=== PATIENT | male | born 1970 | race Caucasian/White ===

== ENCOUNTER 2017-04-19 02:22 | Emergency (ER) | payer SELFPAY ==
[~2017-04-19] VITALS: Ht 182.9 cm; Wt 81.6 kg
[2017-04-19 02:28] VITALS: BP 144/80
[2017-04-19] MEDS ORDERED: CEPH-264 PO (02:55)
[2017-04-19] MEDS ORDERED: SULF1TAB24 PO (02:55)
[2017-04-19] MEDS ORDERED: IBUP-1060 PO (02:55)
--- NOTE | 2017-04-19 02:56 | PHYS DOC ---
Past Medical History Past Medical History: Diabetes-Type I Past Surgical History: Other Additional Past Surgical Histo: spleen repair Alcohol Use: Rarely Drug Use: None Adult General Chief Complaint Chief Complaint: FINGER INJURY HPI HPI Patient is a 46 year old male who presents with right index fingertip infection. 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 Patient states tonight he removed what he believes the last of the splinter however as a night progressed the pain got worse. Patient denies any other injuries. Patient denies any fevers. Patient is diabetic. Patient is right-handed. Patient is no other complaints. Review of Systems Review of Systems GEN: Denies fevers, chills, sweats HEENT: Denies blurred vision, sore throat CV: Denies chest pain RESP: Denies shortness of air, cough GI: Denies n/v/d NEURO: Denies confusion, dizziness MSK: Right index finger pain Allergies Allergies Allergies Coded Allergies Type Severity Reaction Last Updated Verified No Known Drug Allergies 04/19/17 No Physical Exam Physical Exam GEN.: No apparent distress. Alert and oriented. HEENT: Head is normocephalic, atraumatic NECK: Supple. LUNGS: CTAB. HEART: RRR, S1, S2 present. Peripheral pulses intact ABDOMEN: Soft, nontender. Positive bowel sounds. EXTREMITIES: Without any cyanosis. Tip of the right index finger is tender to palpation with erythema and swelling, or refill less than 2 seconds, abrasion to the pad of the index finger secondary to recent removal of the splinter NEUROLOGIC: Normal speech, normal tone PSYCHIATRIC: Normal affect, normal mood. SKIN: No ulcerations Current Patient Data Vital Signs Vital Signs Date Time Temp Pulse Resp B/P (MAP) Pulse Ox O2 Delivery O2 Flow Rate FiO2 04/19/17 02:28 98.8 75 16 96 Room Air 98.8 EKG EKG [] Radiology/Procedures Radiology/Procedures [] Course & Med Decision Making Course & Med Decision Making Pertinent Labs and Imaging studies reviewed. (See chart for details) MDM: After reviewing the chart, CC/HPI/PMH, physical exam, the patient has a fingertip infection secondary to have any splinter in the finger. I do not believe there is no abscess and needs be drained at this time. Patient has no signs or symptoms of flexor tenosynovitis The patient is diabetic therefore be placed on antibiotics. Believe the patient is stable for discharge as showing no systemic signs of sepsis. Recommended patient follow with PCP in one to 2 days. Additional verbal discharge instructions were provided to the patient and that if symptoms get worse or any new symptoms arise that are worrisome to the patient he is to return to the emergency room immediately [] Dragon Disclaimer Dragon Disclaimer This electronic medical record was generated, in whole or in part, using a voice recognition dictation system. Departure Departure Impression: Primary Impression: Finger infection Disposition: HOME, SELF-CARE Condition: IMPROVED Referrals: NO PCP (PCP) Patient Instructions: Fingertip Infections Additional Instructions: Please follow up with her family doctor next one to 2 days Scripts Sulfamethoxazole/Trimethoprim (BACTRIM DS TABLET) 1 Each Tablet 1 TAB PO BID, #20 TAB Prov: TAMIKO CRISTINA DO 04/19/17 Cephalexin (KEFLEX) 500 Mg Capsule 1 CAP PO TID, #30 CAP Prov: TAMIKO CRISTINA DO 04/19/17 Ibuprofen (IBUPROFEN) 800 Mg Tablet 800 MG PO PRN Q6HRS Y for INFLAMMATION for 10 Days, #40 TAB Prov: TAMIKO CRISTINA DO 04/19/17 TAMIKO CRISTINA DO Apr 19, 2017 02:56
== END 2017-04-19 03:20 | disposition home or self-care (01) ==
LOC: ER 02:22
DX: L08.9 Local infection of the skin and subcutaneous tissue, unspecified (principal); E10.9 Type 1 diabetes mellitus without complications; Z79.4 Long term (current) use of insulin
CPT/HCPCS: 99283

== ENCOUNTER 2017-04-26 14:59 | Emergency (ER) | payer SELFPAY ==
[~2017-04-26] VITALS: Ht 182.9 cm; Wt 81.6 kg
[~2017-04-26 14:59] MED LIST: CEPH-264 PO; IBUP-1060 PO; SULF1TAB24 PO
[2017-04-26 15:18] VITALS: BP 135/94
--- NOTE | 2017-04-26 15:40 | PHYS DOC ---
Past Medical History Past Medical History: Diabetes-Type I Past Surgical History: Other Additional Past Surgical Histo: spleen repair Alcohol Use: Rarely Drug Use: None Adult General Chief Complaint Chief Complaint: FINGER INJURY [facility] HPI Patient is a 46 year old male presents to the emergency department concerns regarding an injury to the right index finger. The injury is 10 days old. Patient reports he was in the emergency department 7 days ago at which time he is placed on cephalexin and Bactrim. He states he's been soaking the finger in peroxide and does not seem to be getting better. He has no increase in pain. He occasionally has purulent discharge from the wound. Review of Systems Review of Systems Constitutional: Denies fever or chills [] Eyes: Denies change in visual acuity, redness, or eye pain [] HENT: Denies nasal congestion or sore throat [] Respiratory: Denies cough or shortness of breath [] Cardiovascular: No additional information not addressed in HPI [] GI: Denies abdominal pain, nausea, vomiting, bloody stools or diarrhea [] : Denies dysuria or hematuria [] Musculoskeletal: Right index finger injury Integument: Denies rash or skin lesions [] Neurologic: Denies headache, focal weakness or sensory changes [] Endocrine: Denies polyuria or polydipsia [] Allergies Allergies Allergies Coded Allergies Type Severity Reaction Last Updated Verified No Known Drug Allergies 04/19/17 No Physical Exam Physical Exam Constitutional: Well developed, well nourished, no acute distress, non-toxic appearance. [] Skin: Warm, dry, no erythema, no rash. [] Extremities: Right index finger, palmar aspect, distal to the DIP, area of callus. The original injury is been E faecalis. And appears to have a small amount of purulent discharge. There is no erythema to the finger. He has no pain with range of motion. Neurovascular intact distally. Current Patient Data Vital Signs Vital Signs Date Time Temp Pulse Resp B/P (MAP) Pulse Ox O2 Delivery O2 Flow Rate FiO2 04/26/17 15:18 98.5 73 18 98 Room Air 98.5 EKG EKG [] Radiology/Procedures Radiology/Procedures Right index finger, area cleansed with Betadine, callus debrided. The underlying tissue is well granulated. There is no erythema, no purulence. She was provided with wound care information, advised to continue current antibiotics, follow-up primary care in 7-10 days. [] Course & Med Decision Making Course & Med Decision Making Pertinent Labs and Imaging studies reviewed. (See chart for details) [] Dragon Disclaimer Dragon Disclaimer This electronic medical record was generated, in whole or in part, using a voice recognition dictation system. Departure Departure Impression: Primary Impression: Encounter for wound re-check Disposition: HOME, SELF-CARE Condition: STABLE Referrals: NO PCP (PCP) Patient Instructions: Wound Care, [id number] Additional Instructions: Continue antibiotics as previously directed. The wound clean and dry. Cover the wound if you will be working at your job in getting wound dirty. JOSE ARMANDO [employer] PATHOLOGIST Apr 26, 2017 15:40
== END 2017-04-26 15:48 | disposition home or self-care (01) ==
LOC: ER 14:59
DX: L84 Corns and callosities (principal); E10.9 Type 1 diabetes mellitus without complications
CPT/HCPCS: 99284

== ENCOUNTER 2019-02-13 14:31 | Emergency (ER) | payer MEDICARE, SELFPAY ==
[~2019-02-13] VITALS: Ht 182.9 cm; Wt 74.8 kg
[2019-02-13] MEDS ORDERED: IV NORMAL SALINE 1000ML BAG 1,000 ML IV ONE (15:30)
[2019-02-13 15:35] LABS: BASO % 1 % (0-3); EOS # 0.1 x10^3/uL (0.0-0.7); EOS % 1 % (0-3); HEMATOCRIT 44.3 % (39.0-53.0); HEMOGLOBIN 15.1 g/dL (13.0-17.5); LYMPH # 2.3 x10^3/uL (1.0-4.8); LYMPH % 30 % (24-48); MEAN CORPUSCULAR HEMOGLOBIN 30 pg (25-35); MEAN CORPUSCULAR HGB CONC 34 g/dL (31-37); MEAN CORPUSCULAR VOLUME 89 fL (79-100); MONO # 0.6 x10^3/uL (0.0-1.1); MONO % 8 % (0-9); NEUT # 4.6 x10^3uL (1.8-7.7); NEUT % 61 % (31-73); PLATELET COUNT 213 x10^3/uL (140-400); RED BLOOD COUNT 4.97 x10^6/uL (4.30-5.70); RED CELL DISTRIBUTION WIDTH 13.3 % (11.5-14.5); WHITE BLOOD COUNT 7.6 x10^3/uL (4.0-11.0)
[2019-02-13 15:44] LABS: GFR 80.1; POTASSIUM 4.6 mmol/L (3.5-5.1)
[2019-02-13 15:50] LABS: ALBUMIN 3.9 g/dL (3.4-5.0); ALBUMIN/GLOBULIN RATIO 1.1 (1.0-1.7); TOTAL BILIRUBIN 0.5 mg/dL (0.2-1.0); TOTAL PROTEIN 7.5 g/dL (6.4-8.2)
[2019-02-13 15:57] LABS: BILIRUBIN,URINE NEGATIVE (NEG); CLARITY,URINE CLEAR; COLOR,URINE YELLOW; NITRITE,URINE NEGATIVE (NEG); PROTEIN,URINE NEGATIVE (NEG-TRACE); UROBILINOGEN,URINE 0.2 mg/dL (0.2 mg/dL)
[2019-02-13 16:00] VITALS: BP 116/71
--- NOTE | 2019-02-13 16:07 | PHYS DOC ---
Past Medical History Past Medical History: Diabetes-Type I Past Surgical History: Other Additional Past Surgical Histo: spleen repair Alcohol Use: Rarely Drug Use: None Adult General Chief Complaint Chief Complaint: ABSCESS HPI HPI 48-year-old male presents to ER for complaints of ongoing pilonidal cyst which he has had since May. Patient reports he has been seen by his primary care physician however his A1c has been elevated and so they were reluctant to do any type of I&D or wound care until A1c improved. Patient reports 2 months ago he had his A1c rechecked and it was down to 8.7 which it had been over 10 on prior check. She reports the area continues to grow in size denies any urinary or change in bowel patterns. Patient denies fever, nausea or vomiting, or diarrhea. Patient states his blood sugars have been fluctuating. During exam patient is quite anxious and flight of ideas when discussing ongoing symptoms. With questioning he had to be redirected multiple times as he would not answer questions and again change subjective and discuss other ongoing issues. Pt denies any illicit drug use reports history of anxiety states he did take Xanax earlier which as prescribed. Review of Systems Review of Systems Constitutional: Denies fever or chills [] Eyes: Denies change in visual acuity, redness, or eye pain [] HENT: Denies nasal congestion or sore throat [] Respiratory: Denies cough or shortness of breath [] Cardiovascular: No additional information not addressed in HPI [] GI: Denies abdominal pain, nausea, vomiting, bloody stools or diarrhea. Pt reports abscess on coccyx- denies rectal pain or pain w/BMs : Denies dysuria or hematuria [] Musculoskeletal: Denies joint pain. Reports pain/swelling at abscess site coccyx area Integument: Reports abscess Neurologic: Denies headache, focal weakness or sensory changes [] Endocrine: Denies polyuria or polydipsia [] Psych: Reports anxiety- denying SI All other systems were reviewed and found to be within normal limits, except as documented in this note. Current Medications Current Medications Current Medications Medications (Trade) Dose Ordered Sig/Kim Start Time Stop Time Status Last Admin Dose Admin Lorazepam (Ativan Inj) 1 mg 1X ONCE 02/13/19 16:15 02/13/19 16:16 DC 02/13/19 16:15 1 MG Nicotine (Nicoderm Cq 21mg) 1 patch DAILY 02/13/19 18:00 02/13/19 18:22 DC Sodium Chloride 1,000 ml @ 1,000 mls/hr 1X ONCE 02/13/19 15:30 02/13/19 16:29 DC 02/13/19 15:28 1,000 MLS/HR Allergies Allergies Allergies Coded Allergies Type Severity Reaction Last Updated Verified No Known Drug Allergies 04/19/17 No Physical Exam Physical Exam Constitutional: Well developed, well nourished, no acute distress, non-toxic appearance. [] HENT: Normocephalic, atraumatic, bilateral external ears normal, oropharynx moist, no oral exudates, nose normal. [] Eyes: PERRLA, EOMI, conjunctiva normal, no discharge. [] Neck: Normal range of motion, no tenderness, supple, no stridor. [] Cardiovascular:Heart rate regular rhythm, no murmur [] Lungs & Thorax: Bilateral breath sounds clear to auscultation [] Abdomen: Bowel sounds normal, soft, no tenderness, no masses, no pulsatile masses. [] Skin: Warm, dry, no erythema, no rash. [] Back: No tenderness, no CVA tenderness. [] Extremities: No tenderness, no cyanosis, no clubbing, ROM intact, no edema. [] Neurologic: Alert and oriented X 3, normal motor function, normal sensory funct ion, no focal deficits noted. [] Psychologic: Affect normal, judgement normal, mood normal. [] Current Patient Data Vital Signs Vital Signs Date Time Temp Pulse Resp B/P (MAP) Pulse Ox O2 Delivery O2 Flow Rate FiO2 02/13/19 16:00 74 116/71 (86) 98 Room Air 02/13/19 14:54 98.5 20 98.5 Lab Values Laboratory Tests Test 02/13/19 14:54 02/13/19 15:20 02/13/19 15:45 02/13/19 16:38 Glucose (Fingerstick) 458 mg/dL (70-99) H 304 mg/dL (70-99) H White Blood Count 7.6 x10^3/uL (4.0-11.0) Red Blood Count 4.97 x10^6/uL (4.30-5.70) Hemoglobin 15.1 g/dL (13.0-17.5) Hematocrit 44.3 % (39.0-53.0) Mean Corpuscular Volume 89 fL (79-100) Mean Corpuscular Hemoglobin 30 pg (25-35) Mean Corpuscular Hemoglobin Concent 34 g/dL (31-37) Red Cell Distribution Width 13.3 % (11.5-14.5) Platelet Count 213 x10^3/uL (140-400) Neutrophils (%) (Auto) 61 % (31-73) Lymphocytes (%) (Auto) 30 % (24-48) Monocytes (%) (Auto) 8 % (0-9) Eosinophils (%) (Auto) 1 % (0-3) Basophils (%) (Auto) 1 % (0-3) Neutrophils # (Auto) 4.6 x10^3uL (1.8-7.7) Lymphocytes # (Auto) 2.3 x10^3/uL (1.0-4.8) Monocytes # (Auto) 0.6 x10^3/uL (0.0-1.1) Eosinophils # (Auto) 0.1 x10^3/uL (0.0-0.7) Basophils # (Auto) 0.0 x10^3/uL (0.0-0.2) Sodium Level 135 mmol/L (136-145) L Potassium Level 4.6 mmol/L (3.5-5.1) Chloride Level 98 mmol/L (98-107) Carbon Dioxide Level 28 mmol/L (21-32) Anion Gap 9 (6-14) Blood Urea Nitrogen 19 mg/dL (8-26) Creatinine 1.0 mg/dL (0.7-1.3) Estimated GFR (Cockcroft-Gault) 80.1 BUN/Creatinine Ratio 19 (6-20) Glucose Level 417 mg/dL (70-99) H Calcium Level 9.0 mg/dL (8.5-10.1) Total Bilirubin 0.5 mg/dL (0.2-1.0) Aspartate Amino Transferase (AST) 18 U/L (15-37) Alanine Aminotransferase (ALT) 27 U/L (16-63) Alkaline Phosphatase 105 U/L (46-116) Total Protein 7.5 g/dL (6.4-8.2) Albumin 3.9 g/dL (3.4-5.0) Albumin/Globulin Ratio 1.1 (1.0-1.7) Ethyl Alcohol Level < 10 mg/dL (0-10) Acetone Level Neg (NEG) Urine Collection Type Unknown Urine Color Yellow Urine Clarity Clear Urine pH 6.0 Urine Specific [place] >=1.030 Urine Protein Negative mg/dL (NEG-TRACE) Urine Glucose (UA) >=1000 mg/dL (NEG) Urine Ketones (Stick) Negative mg/dL (NEG) Urine Blood Negative (NEG) Urine Nitrite Negative (NEG) Urine Bilirubin Negative (NEG) Urine Urobilinogen Dipstick 0.2 mg/dL (0.2 mg/dL) Urine Leukocyte Esterase Negative (NEG) Urine RBC Occ /HPF (0-2) Urine WBC 0 /HPF (0-4) Urine Bacteria 0 /HPF (0-FEW) Urine Opiates Screen Neg (NEG) Urine Methadone Screen Neg (NEG) Urine Barbiturates Neg (NEG) Urine Phencyclidine Screen Neg (NEG) Urine Amphetamine/Methamphetamine Neg (NEG) Urine Benzodiazepines Screen Neg (NEG) Urine Cocaine Screen Neg (NEG) Urine Cannabinoids Screen Pos (NEG) Urine Ethyl Alcohol Neg (NEG) Laboratory Tests 02/13/19 15:20 Laboratory Tests 02/13/19 15:20 EKG EKG [] Radiology/Procedures Radiology/Procedures [] Course & Med Decision Making Course & Med Decision Making Pertinent Labs reviewed. (See chart for details) Pt's initial Accu-Chek was 458-discussed with elevated blood sugar discussed obtaining labs for further eval. to r/o DKA or other acute process. 1645: Indepth conversation had with patient regarding elevated blood sugar and ongoing pilonidal cyst. Test results were discussed with acetone negative UA negative for ketones and anion gap was normal limits as well. Patient's recheck on blood sugar 304 bedside. Again during conversation patient was anxious and restless multiple times needing redirection on conversation as he would repeat over and over the same things and continued to focus on his A1c and that being the cause he hadn't had surgery in the past. Discussion had with patient regarding pilonidal cyst and elevated blood sugar and need for general surgery to care for wound and close monitoring due to his diabetes. Patient did not appear to comprehend what was being said to him. He just repeatedly would talk about his A1c. Discussed test results with pt- multiple times he interrupted so uncertain if he was listening as he was so focused on talking about his A!c and his belief his cyst hadn't been cared for d/t to past results. Discharge instructions were discussed as labs were unremarkable- no DKA with neg. acetone/NL anion gap. IV flds had been given as well as dose of Ativan which had briefly improved pt's anxiety. At no time was he combative/uncontrollable with actions. He denied SI/hallucinations/drug use/alcohol use. He was just wanting to speak his feelings with little regard to what this provider was saying. Pt requested admission following discussion as he wants to have surgeon see him- will speak with hospitalist and discuss pt's case/requests for admit. 1950: Dr. Clement, hospitalist in ER. Discussed pt's case and pt's reluctancy on being discharged home as he wanted to be MARYANN by General Surgeon even after indepth attempts to have conversation with pt that he could be seen outpt and cared for. Dr. Clement went to bedside and had same issue with pt. She reports she discussed pt having outpt care vs admission and that she would provide him with Rx for Lantus for hs w/his elevated BS and pt to f/u with his diabetic doctor for re-eval of his BS. Pt continued to interrupt Dr. Clement during discussion- he again appeared uninterested in what the provider was saying and wanted to voice his thoughts. Dr. Clement said to discharge pt home as he is stable and not wanting to listen to provider's comments. Will provide pt with abscess info as he had sm. abscess to lt side of pilonidal cyst-area was small and no large fluctuation on palpation. Patient advised on need to call his doctor as soon as possible to schedule appointment for reevaluation as well as general surgeon for additional care for the pilonidal cyst. Education provided on signs and symptoms to return to ER. Discharge instructions were discussed. Again while attempting to discuss discharge instructions patient interrupted multiple times so uncertain if he was listening to this provider's education. He was in no visible distress steady unassisted gait and remaining nontoxic in appearance. Patient had stated he had Xanax prescribed for his anxiety and thro ughout ER visit had denied SI. Patient was provided with prescription for Lantus 20 units daily at hs by Dr. Clement with his d/c paperwork. Dragon Disclaimer Dragon Disclaimer This electronic medical record was generated, in whole or in part, using a voice recognition dictation system. Departure Departure Impression: Primary Impression: Cyst, pilonidal, with abscess Disposition: HOME, SELF-CARE Condition: STABLE Referrals: NO PCP (PCP) ANETA GOINS MD Patient Instructions: Pilonidal Cyst Additional Instructions: Continue to monitor blood sugars. Call your doctor tomorrow and schedule an appointment to have wound reevaluation and recheck of your blood sugar. Warm compress and/or warm soaks daily. Obtain a donut type pillow which will allow pressure relief on wound. Follow-up with a General Surgeon for wound re-evaluation and further care. Scripts Sulfamethoxazole/Trimethoprim (BACTRIM DS TABLET) 1 Each Tablet 1 TAB PO BID, #14 TAB 0 Refills Prov: STAN TATUM APRN 02/13/19 STAN TATUM APRN February 13, 2019 16:07
[2019-02-13 16:20] LABS: BARBITURATES NEG (NEG); BENZODIAZEPINES NEG (NEG); CANNABINOIDS POS (NEG); COCAINE NEG (NEG); METHADONE NEG (NEG); OPIATES NEG (NEG); PHENCYCLIDINE NEG (NEG)
[2019-02-13 16:21] LABS: AMPHETAMINE/METHAMPHETAMINE NEG (NEG)
[2019-02-13 16:24] LABS: BACTERIA,URINE 0 /HPF (0-FEW); RBC,URINE OCC /HPF (0-2); WBC,URINE 0 /HPF (0-4)
[2019-02-13] MEDS ORDERED: SULF1TAB24 PO (17:14)
[2019-02-13] MEDS ORDERED: NICOTINE 21MG PATCH. TD SCH (18:00)
--- NOTE | 2019-02-13 18:31 | PDOC ---
Provider Note Provider Note I was called by mid-level provider from ER to admit Mr Mcmanus. He is a 48-year-old male who is a type I diabetic who is only on just sliding scale insulin with a recent A1c 8.7 as he relays to me. He has a pilonidal cyst on his lower back near the junction of his upper buttock and lower back, already follows with [facility] and was told that they want his A1c lower before they can do any type of surgery Hospitalist was called to admit the patient. Pt is refusing to be discharged, he wants our surgeons to see him and say if the A1c of 8.7 is too high to operate on, he wanted to be admitted and refused to be discharged.. There was no gap, hemodynamically stable and is hard to educate. HEAVY SIGNIFICANT TIME AT THE ER EDUCATING THIS PATIENT, HE ALREADY FOLLOWS WITH AT [facility], AND THE STANDARD OF CARE given to him IS RATHER APPROPRIATE. OUR SURGEONS WOULD ALSO NOT WANT TO OPERATE on an A1C OF 8.7 WITH A RATHER NON- COMPLICATED PILONIDAL CYST. AFTER HEAVY TIME DISCUSSION, AND HELP FROM ER STAFF, HE FINALLY AGREED TO BE DISCHARGED. I DID ADVISE ER MId level to GIVE SOME LISPRO 12-15 UNITS FOR THE BLOOD SUGAR OF OVER 300. I TOLD the patient ABOUT MY RECOMMENDATION OF STARTING LANTUS OR LEVEMIR 20 UNITS DAILY AT BEDTIME SLIDING SCALE INSULIN WILL USUALLY NOT DO OR HELP HIS SITUATION to lower his hgba1c to an ideal level. I AM UNSURE IF HE ACTUALLY WAS INTERESTED or took my PRESCRIPTION PATIENT SEEN AND EXAMINED, SIGNIFICANT TIME AT THE ER PE: WNL, except for pilonidal cyst maybe 1.5 cm to 2 cm in greatest diameter at the junction of the lower back and upper buttock JUNI VILLAR MD February 13, 2019 18:31
== END 2019-02-13 18:22 | disposition home or self-care (01) ==
LOC: ER 14:31
DX: L05.01 Pilonidal cyst with abscess (principal); E10.9 Type 1 diabetes mellitus without complications
CPT/HCPCS: 36415; 80053; 80307; 81001; 82010; 82962; 85025; 96374; 99284; G0480; J2060; J7030